=== PATIENT | male | born 1995 | race Caucasian/White ===

== ENCOUNTER 2020-04-29 07:04 | Emergency (ER) | payer OTHER ==
[~2020-04-29] VITALS: Ht 182.9 cm; Wt 95.5 kg
[2020-04-29 07:10] VITALS: BP 132/74
[2020-04-29 08:09] LABS: BASO % 0.5 % (0.0-1.0); EOS # 0.3 10^3/uL (0.0-0.5); EOS % 5.5 % (0.0-3.0); HEMATOCRIT 42.4 % (42.0-52.0); HEMOGLOBIN 13.8 g/dl (13.5-17.5); LYMPH # 1.5 10^3/uL (1.5-5.0); LYMPH % 25.7 % (24.0-44.0); MEAN CORPUSCULAR HEMOGLOBIN 28.6 pg (27.0-33.0); MEAN CORPUSCULAR HGB CONC 32.5 g/dl (32.0-36.5); MEAN CORPUSCULAR VOLUME 87.8 fl (80.0-96.0); MONO # 0.6 10^3/uL (0.0-0.8); MONO % 10.4 % (2.0-8.0); NEUTROPHILS # 3.4 10^3/uL (1.5-8.5); NEUTROPHILS % 57.6 % (36.0-66.0); PLATELET COUNT, AUTOMATED 239 10^3/uL (150-450); RED BLOOD COUNT 4.83 10^6/uL (4.30-6.10)
[2020-04-29] MEDS ORDERED: ISOVUE-370 76% 100ML VIAL As Ordered ONE (08:14)
[2020-04-29 08:27] LABS: ERYTHROCYTE SEDIMENTATION RATE 2 mm/hr (0-15)
--- NOTE | 2020-04-29 08:37 | REP ---
INDICATION: R jaw/neck swelling, r/o abscess vs parotitis COMPARISON: None. TECHNIQUE: Axial contrast-enhanced images from the skull base to the thoracic inlet with coronal and sagittal reformations using 100 cc Isovue 370 intravenous contrast material. This CT examination was performed using the following dose reduction techniques: Automated exposure control, adjustment of mA and/or kv according to the patient's size, and use of iterative reconstruction technique. FINDINGS: Extremely subtle subcutaneous infiltration in induration is identified beginning at approximately the level of the right mandibular angle and extending inferiorly to the level of the hyoid with very subtle asymmetric right cervical chain lymph nodes remaining less than 1 cm diameter. Findings are nonspecific and likely represent a mild cellulitis or underlying infectious/inflammatory process. There is no associated phlegmon, drainable collection or abscess. Remainder of the examination including the subcutaneous tissues underlying the BB marker appear symmetric and normal. The naso, sheela and hypopharynx, larynx and subglottic trachea are normal in appearance. The salivary and thyroid glands are normal in size and density. Small lymph nodes less than 1 cm in size are present in the internal jugular chains, posterior triangles, submandibular and submental areas. The lung apices are clear. The visualized sinuses are clear. IMPRESSION: Very subtle subcutaneous infiltration as described above primarily beginning at the level of the right mandibular angle and extending to just about the level of the hyoid bone likely representing a mild infectious/inflammatory process. No associated deep pathology is appreciated. No drainable collection or abscess. <Electronically signed by Fabian Wang > 04/29/20 0839
[2020-04-29] MEDS ORDERED: AMPICILLIN SOD/SULBACTAM SOD 3 GM in D5W MINI-BAG PLUS 100 ML IV ONE (09:05)
[2020-04-29] MEDS ORDERED: dexameTHASONE 20MG/5ML VIAL (J1100 PER 1MG) IV ONE (09:05)
[2020-04-29] MEDS ORDERED: AUGM875T28 PO (10:00)
[2020-04-29] MEDS ORDERED: PRED20TA PO (10:00)
== END 2020-04-29 10:16 | disposition home or self-care (01) ==
LOC: M ED 07:04
DX: L03.211 Cellulitis of face (principal)
CPT/HCPCS: 36415; 70491; 80047; 85025; 85652; 86140; 96365; 96375; 99284; J1100; Q9967